=== PATIENT | male | born 1990 | race Caucasian/White ===

== ENCOUNTER 2016-10-12 13:18 | Emergency (ER) | payer BC, MEDICAID ==
[~2016-10-12] VITALS: Ht 180.3 cm; Wt 83.0 kg
[2016-10-12] MEDS ORDERED: ONDANSETRON HCL 4MG/2ML VIAL IV STA (14:54)
[2016-10-12] MEDS ORDERED: MORPHINE SULFATE 4 MG/ML CPJ (NOT FOR IM USE) IV STA (14:54)
[2016-10-12] MEDS ORDERED: SODIUM CHLORIDE 0.9% 1,000 ML IV ONE (14:54)
[2016-10-12 15:19] LABS: BASOPHILS % 0.4 % (0.0-2.0); EOSINOPHILS % 1.2 % (0.0-5.0); HEMATOCRIT. 40.4 % (42.0-52.0); HEMOGLOBIN. 13.7 g/dL (14.0-18.0); LYMPHOCYTES % 19.5 % (20.0-50.0); MEAN CORPUSCULAR HEMOGLOBIN 30.1 pg (28.0-32.0); MEAN CORPUSCULAR HGB CONC 33.8 g/dL (31.0-37.0); MEAN CORPUSCULAR VOLUME 89.1 fL (80.0-94.0); MEAN PLATELET VOLUME 8.1 fl (7.4-10.4); MONOCYTES % 11.9 % (2.0-8.0); PLATELET 217 x1000/uL (130-400); RED BLOOD CELL COUNT 4.53 mill/uL (4.7-6.1); RED CELL DISTRIBUTION WIDTH 14.3 % (11.6-14.6); WHITE BLOOD COUNT 5.3 x1000/uL (4.5-11.0)
[2016-10-12 15:24] LABS: CALCIUM 8.9 mg/dL (8.5-10.1); CHLORIDE 107 mEq/L (98-107); INDEX HEMOLYSI 1 (1-3); INDEX ICTERIC 1 (1-4); INDEX LIPEMIC 1 (1-3); INR 1.1; PROTHROMBIN TIME 11.6 sec
[2016-10-12 15:28] LABS: ALANINE AMINOTRANSFERASE 26 IU/L (13-61); ALBUMIN 3.8 g/dL (3.4-5.0); ANION GAP 13; CARBON DIOXIDE 26 mEq/L (21-32); UREA NITROGEN BLOOD 14 mg/dL (7-21); eGFR > 60 mL/min (>60)
[2016-10-12 16:55] VITALS: BP 116/61
== END 2016-10-12 16:57 | disposition home or self-care (01) ==
LOC: ER 14:41
DX: K62.89 Other specified diseases of anus and rectum (principal); K61.1 Rectal abscess; F17.200 Nicotine dependence, unspecified, uncomplicated; F12.10 Cannabis abuse, uncomplicated; R79.1 Abnormal coagulation profile
CPT/HCPCS: 36415; 74176; 80053; 85025; 85610; 96361; 96374; 96375; 99285; J2270; J2405; J7030; Z7610

== ENCOUNTER 2018-09-03 20:45 | Emergency (ER) | payer BC, MEDICAID ==
[~2018-09-03] VITALS: Ht 185.4 cm; Wt 86.0 kg
[2018-09-04] MEDS ORDERED: ONDANSETRON HCL 4MG/2ML INJ IM ONE (01:15)
[2018-09-04] MEDS ORDERED: SODIUM CHLORIDE 0.9% 100 ML IV ONE (01:15)
[2018-09-04] MEDS ORDERED: MORPHINE SULFATE 4 MG/ML CPJ (NOT FOR IM USE) IV ONE ×2 (01:15→04:00)
[2018-09-04 01:31] LABS: CHLORIDE 106 mEq/L (98-107)
[2018-09-04 01:35] LABS: BASOPHILS % 0.4 % (0.0-2.0); EOSINOPHILS % 1.1 % (0.0-5.0); HEMATOCRIT. 41.3 % (42.0-52.0); HEMOGLOBIN. 14.1 g/dL (14.0-18.0); LYMPHOCYTES % 15.1 % (20.0-50.0); MEAN CORPUSCULAR HEMOGLOBIN 32.4 pg (28.0-32.0); MEAN CORPUSCULAR VOLUME 94.9 fL (80.0-94.0); MEAN PLATELET VOLUME 8.7 fl (7.4-10.4); NEUTROPHILS % 74.4 % (40.0-76.0); PLATELET 229 x1000/uL (130-400); RED BLOOD CELL COUNT 4.36 mill/uL (4.7-6.1); RED CELL DISTRIBUTION WIDTH 13.5 % (11.6-14.6)
[2018-09-04] MEDS ORDERED: ONDANSETRON HCL 4MG/2ML INJ IV ONE (04:00)
[2018-09-04] MEDS ORDERED: KETOROLAC 30MG/ML VIAL IV ONE (06:00)
[2018-09-04 06:24] VITALS: BP 127/45
[2018-09-04] MEDS ORDERED: IOHEXOL-300 100 ML BOTTLE ONE (06:36)
== END 2018-09-04 06:24 | disposition home or self-care (01) ==
LOC: ER 20:45
DX: K61.1 Rectal abscess (principal); K62.89 Other specified diseases of anus and rectum; F12.10 Cannabis abuse, uncomplicated
CPT/HCPCS: 36415; 72192; 72193; 80053; 85025; 96361; 96372; 96374; 96375; 96376; 99284; J1885; J2270; J2405; J7050; Q9967; Z7610